=== PATIENT | male | born 1975 | race Caucasian/White ===

== ENCOUNTER → 2018-10-18 | Outpatient (CLI) | payer MEDICARE ==
[~2018-10-18] MED LIST: 0.9 % SODIUM CHLORIDE 10 ML DISP.SYRIN. ID ONE; GADOBUTROL 10 MMOL/10 ML VIAL INT ART ONE; GADOBUTROL 10 MMOL/10 ML VIAL IV ONE; IOHEXOL 300 MG/ML 50 ML VIAL. INT ART ONE; LIDOCAINE 1% Multi-Dose 20 ML VIAL. ID ONE; LISI1TAB7 PO
--- NOTE | 2018-10-18 14:32 | KCIC ---
Examination: MR arthrogram left shoulder HISTORY: History of left shoulder pain, decreased range of motion for 2 months COMPARISON: None available Technique: Multiplanar, multisequence MR imaging of the left shoulder were performed without contrast. FINDINGS: The humerus head is within the glenoid. The long head of the biceps tendon is within the bicipital groove. The attachment of the long head to the biceps tendon to the superior labral anchor grossly appears intact. Faint increased signal identified identified at the attachment of the anterior fibers of the supraspinatus tendon to the greater trochanter, best seen on series 9 image 11 could be a subtle partial undersurface tear measuring 8.5 mm in transverse dimension and 6.5 mm in AP dimension. The attachment of the subscapularis tendon, infraspinatus tendon grossly appears intact. Mild tendinosis of the rotator cuff. There is mild increased signal identified in the superior labrum extending anterior and posterior likely a SLAP tear. The muscle bulk grossly appears unremarkable. The acromion is downsloping, type II. Mild degenerative changes acromioclavicular joint. Impression: 1. Mild increased signal identified in the superior labrum extending anterior and posterior likely a SLAP tear. 2. Small partial undersurface tear of the anterior fibers of the supraspinatus tendon at its attachment to the greater tuberosity. 3. Mild tendinosis rotator cuff. Electronically signed by: Kemal Armstrong MD (10/18/2018 2:29 PM) [id number]
--- NOTE | 2018-10-18 14:38 | KCIC ---
EXAM: FLUOROSCOPY GUIDED left SHOULDER ARTHROGRAM History: Left shoulder pain COMPARISON: None available TECHNIQUE: Consent: A written, informed consent was obtained from the patient prior to the procedure. The skin was prepped and draped in the usual fashion under aseptic precautions. Dilute 1% lidocaine was used for local anesthesia. Under fluoroscopic guidance a 22 gauge long spinal needle was used to access the shoulder joint. A 13 ml mixture 5 cc of Omnipaque 300, 5 cc of lidocaine, 10 cc of normal saline and 0.1 cc gadavist was injected into the shoulder joint. The patient was transferred to the MRI suite. 34 seconds of total fluoroscopy time was utilized. Total fluoroscopic images 1. No immediate complications. IMPRESSION: Technically successful left shoulder arthrogram. Electronically signed by: Kemal Armstrong MD (10/18/2018 2:35 PM) [email or web address]
== END | disposition home or self-care (01) ==
LOC: KCIC 12:33
PROVIDERS: ATTEND Orthopaedic Surgery
DX: M75.112 Incomplete rotator cuff tear or rupture of left shoulder, not specified as traumatic (principal)
CPT/HCPCS: 23350; 73222; 77002; A9585; Q9967; 73040